=== PATIENT | female | born 1970 | race Caucasian/White ===

== ENCOUNTER 2024-01-20 22:49 | Emergency (ER) | payer OTHER | END 2024-01-20 23:39 | disposition home or self-care (01) | LOC: FB.ED 22:49 | DX: S91.201A Unspecified open wound of right great toe with damage to nail, initial encounter (principal); F17.210 Nicotine dependence, cigarettes, uncomplicated; W22.8XXA Striking against or struck by other objects, initial encounter; Y93.01 Activity, walking, marching and hiking | CPT/HCPCS: 99283 ==